=== PATIENT | male | born 1995 | race Hispanic/Latino ===

== ENCOUNTER 2024-04-26 23:07 | Emergency (ER) | payer SELFPAY ==
[2024-04-26] MEDS ORDERED: HYDROCODONE/CHLORPHEN 5 ML/OSYR ONE (23:49)
[2024-04-26] MEDS ORDERED: IBUPROFEN 400 MG TAB ONE (23:50)
[2024-04-26] MEDS ORDERED: dexAMETHasone 4 MG TAB ONE (23:50)
[2024-04-26] MEDS ORDERED: AMOX/K CLAV 875 MG TAB ONE (23:50)
--- NOTE | 2024-04-26 23:51 | ER ---
Nurse's Notes [facility] Name: Delbert Santillan Age: 28 yrs Sex: Male : 1995 Arrival Date: 04/26/2024 Time: 23:07 Bed IW1 Private MD: Diagnosis: Cough;Acute suppurative otitis media with spontaneous rupture of ear drum, right ear Presentation: 04/26 23:30 Chief complaint: Patient states: right ear pain, cough X3 hours. Coronavirus screen: lg3 Client denies travel out of the [place] in the last 14 days. At this time, the client does not indicate any symptoms associated with coronavirus-19. Ebola Screen: No symptoms or risks identified at this time. Initial Sepsis Screen: Does the patient meet any 2 criteria? No. Patient's initial sepsis screen is negative. Does the patient have a suspected source of infection? No. Patient's initial sepsis screen is negative. Risk Assessment: Do you want to hurt yourself or someone else? Patient reports no desire to harm self or others. Onset of symptoms was April 26, 2024. 23:30 Method Of Arrival: Ambulatory lg3 23:30 Acuity: CAROLINE 4 lg3 Triage Assessment: 23:32 General: Appears in no apparent distress. uncomfortable, Behavior is calm, cooperative. lg3 Pain: Complains of pain in right ear. EENT: Reports nasal congestion nasal discharge pain in right ear. Neuro: No deficits noted. Carrera Agitation-Sedation Scale (RASS): 0 - Alert and Calm Level of Consciousness is awake, alert, obeys commands, Oriented to person, place, time, situation. Cardiovascular: No deficits noted. Denies chest pain, shortness of breath, Capillary refill < 3 seconds Clubbing of nail beds is absent JVD is absent Patient's skin is warm and dry. Respiratory: No deficits noted. Airway is patent Respiratory effort is even, unlabored, Respiratory pattern is regular, symmetrical. GI: No deficits noted. No signs and/or symptoms were reported involving the gastrointestinal system. : No signs and/or symptoms were reported regarding the genitourinary system. Derm: No deficits noted. No signs and/or symptoms reported regarding the dermatologic system. Skin is intact, is healthy with good turgor, Skin is dry, Skin is normal, Skin temperature is warm. Musculoskeletal: No deficits noted. No signs and/or symptoms reported regarding the musculoskeletal system. Circulation, motion, and sensation intact. Range of motion: intact in all extremities. Historical: - Allergies: 23:32 No Known Allergies; lg3 - Home Meds: 23:32 None [Active]; lg3 - PMHx: 23:32 None; lg3 - PSHx: 23:32 None; lg3 - Immunization history:: Adult Immunizations up to date. - Infectious Disease History:: Denies. - Social history:: Smoking status: Patient denies any tobacco usage or history of. Patient uses alcohol, only on a social basis. street drugs, THC. Screenin:38 [facility] ED Fall Risk Assessment (Adult) History of falling in the last 3 months, lg3 including since admission No falls in past 3 months (0 pts) Confusion or Disorientation No (0 pts) Intoxicated or Sedated No (0 pts) Impaired Gait No (0 pts) Mobility Assist Device Used No (0 pt) Altered Elimination No (0 pt) Score/Fall Risk Level 0 - 2 = Low Risk Oriented to surroundings, Maintained a safe environment, Educated pt \T\ family on fall prevention, incl call for assistance when getting out of bed, Assessed \T\ reinforced patient's understanding of fall precautions. Abuse screen: Denies threats or abuse. Denies injuries from another. Nutritional screening: No deficits noted. Tuberculosis screening: No symptoms or risk factors identified. Assessment: 23:38 General: see triage assessment. lg3 Vital Signs: 23:30 BP 129 / 74; Pulse 84; Resp 16 S; Temp 98.7(O); Pulse Ox 99% on R/A; Weight 64.86 kg lg3 (R); Height 5 ft. 3 in. (R); 23:30 Body Mass Index 25.33 (64.86 kg, 160.02 cm) lg3 ED Course: 23:11 Patient arrived in ED. [email or web address] 23:11 Александр Griffiths PA is PHCP. cp 23:11 Easton Zambrano MD is Attending Physician. cp 23:32 Triage completed. lg3 23:32 Arm band placed on right wrist. lg3 23:38 Patient has correct armband on for positive identification. lg3 23:48 Sarah Coates MD is Referral Physician. cp 23:57 No provider procedures requiring assistance completed. Patient did not have IV access lg3 during this emergency room visit. Administered Medications: 23:53 Drug: Amoxicillin-Clavulanate PO 875 mg PO once Route: PO; lg3 23:53 Follow up: Response: No adverse reaction lg3 23:53 Drug: Tussionex Pennkinetic ER PO Suspension 5 ml PO once Route: PO; lg3 23:53 Follow up: Response: No adverse reaction lg3 23:53 Drug: Dexamethasone PO 10 mg PO once Route: PO; lg3 23:53 Follow up: Response: No adverse reaction lg3 23:53 Drug: Ibuprofen PO 800 mg PO once Route: PO; lg3 23:54 Follow up: Response: No adverse reaction lg3 Medication: 23:38 VIS not applicable for this client. lg3 Outcome: 23:50 Discharge ordered by MD. cp 23:57 Discharged to home ambulatory, lg3 23:57 Condition: stable 23:57 Discharge instructions given to patient, Instructed on discharge instructions, follow up and referral plans. medication usage, Demonstrated understanding of instructions, follow-up care, medications, Prescriptions given X 4, 12/02 00:10 Patient left the ED. lg3 Signatures: Александр Griffiths PA PA Mishel Lomax RN RN lg3 Farzana Reyes [email or web address]
--- NOTE | 2024-04-26 23:51 | EDPHYS ---
Physician Documentation [facility] Name: Delbert Santillan Age: 28 yrs Sex: Male : 1995 Arrival Date: 04/26/2024 Time: 23:07 Bed IW1 Private MD: ED Physician Easton Zambrano HPI: 04/26 23:36 This 28 yrs old Male presents to ER via Ambulatory with complaints of Right Ear Pain, cp Cough and Sore Throat. 23:36 The patient presents with a fullness, pain, that is acute, tenderness. The complaints cp affect the right ear. Onset: The symptoms/episode began/occurred today, about 2029. Associated signs and symptoms: Pertinent positives: tinnitus, sore throat, cough, Pertinent negatives: fever. Severity of symptoms: in the emergency department the symptoms are unchanged despite home interventions. Historical: - Allergies: 23:32 No Known Allergies; lg3 - Home Meds: 23:32 None [Active]; lg3 - PMHx: 23:32 None; lg3 - PSHx: 23:32 None; lg3 - Immunization history:: Adult Immunizations up to date. - Infectious Disease History:: Denies. - Social history:: Smoking status: Patient denies any tobacco usage or history of. Patient uses alcohol, only on a social basis. street drugs, THC. ROS: 23:37 Eyes: Negative for injury, pain, redness, and discharge, cp 23:37 Constitutional: Negative for body aches, chills, fever, poor PO intake, 23:37 ENT: Positive for ear pain, sore throat, tinnitus, right ear fullness, Negative for drainage from ear(s), difficulty swallowing, difficulty handling secretions, 23:37 Respiratory: Positive for cough, "sounds productive", Negative for shortness of breath, wheezing, 23:37 Abdomen/GI: Negative for abdominal pain, vomiting, diarrhea, constipation, 23:37 Neuro: Negative for altered mental status, dizziness, numbness, weakness, 23:37 All other systems are negative, Exam: 23:40 Constitutional: The patient appears in no acute distress, alert, awake, non-toxic, well cp developed, well nourished, 23:40 Head/Face: Normocephalic, atraumatic. cp 23:40 Eyes: Periorbital structures: appear normal, Conjunctiva: normal, no exudate, no injection, Lids and lashes: appear normal, bilaterally, 23:40 ENT: External ear(s): are unremarkable, Ear canal(s): are normal, clear, TM's: erythema, that is moderate, on the right, loss of bony landmarks, that is moderate, on the right, rupture, on the right, Nose: is normal, Mouth: Lips: moist, Oral mucosa: pink and intact, moist, Posterior pharynx: Airway: no evidence of obstruction, patent, Tonsils: are normal in appearance, erythema, is not appreciated, exudate, is not appreciated, 23:40 Chest/axilla: Inspection: normal, 23:40 Cardiovascular: Rate: normal, 23:40 Respiratory: the patient does not display signs of respiratory distress, Respirations: normal, no use of accessory muscles, no retractions, labored breathing, is not present, Breath sounds: are clear throughout, no decreased breath sounds, no stridor, no wheezing, 23:40 Abdomen/GI: Inspection: abdomen appears normal, Vital Signs: 23:30 BP 129 / 74; Pulse 84; Resp 16 S; Temp 98.7(O); Pulse Ox 99% on R/A; Weight 64.86 kg lg3 (R); Height 5 ft. 3 in. (R); 23:30 Body Mass Index 25.33 (64.86 kg, 160.02 cm) lg3 MDM: 23:42 Medical Screening Exam initiated cp 23:45 Differential diagnosis: otitis media, otitis externa, ruptured TM, strep throat, cp tonsillitis. 23:50 Data reviewed: vital signs, nurses notes, and as a result, I will discharge patient. 23:50 I considered the following discharge prescriptions or medication management in the emergency department Medications were administered in the Emergency Department. See MAR. Counseling: I had a detailed discussion with the patient and/or guardian regarding the historical points, exam findings, and any diagnostic results supporting the discharge/admit diagnosis, the need for outpatient follow up, an ENT specialist, to return to the emergency department if symptoms worsen or persist or if there are any questions or concerns that arise at home. Response to treatment: the patient's symptoms have mildly improved after treatment, and as a result, I will discharge patient. Administered Medications: 23:53 Drug: Amoxicillin-Clavulanate PO 875 mg PO once Route: PO; lg3 23:53 Follow up: Response: No adverse reaction lg3 23:53 Drug: Tussionex Pennkinetic ER PO Suspension 5 ml PO once Route: PO; lg3 23:53 Follow up: Response: No adverse reaction lg3 23:53 Drug: Dexamethasone PO 10 mg PO once Route: PO; lg3 23:53 Follow up: Response: No adverse reaction lg3 23:53 Drug: Ibuprofen PO 800 mg PO once Route: PO; lg3 23:54 Follow up: Response: No adverse reaction lg3 Disposition Summary: 04/26/24 23:50 Discharge Ordered Notes: Location: Home cp Problem: new cp Symptoms: have improved cp Condition: Stable cp Diagnosis - Cough cp - Acute suppurative otitis media with spontaneous rupture of ear drum, right ear cp Followup: cp - With: Sarah Coates MD - When: 1 week - Reason: symptoms continue Discharge Instructions: - Discharge Summary Sheet cp - Otitis Media, Adult cp - Cough, Adult cp Forms: - Medication Reconciliation Form cp - Antibiotic Education cp - Prescription Opioid Use cp - Patient Portal Instructions cp - Leadership Thank You Letter cp - Work release form vk Prescriptions: - Bromfed DM 2-30-10 mg/5 mL Oral syrup - administer 10 milliliter ORAL route every 6-8 hours as needed for cold cp symptoms; 240 milliliter; Refills: 0, Product Selection Permitted - Augmentin 875-125 mg Oral Tablet - take 1 tablet ORAL route every 12 hours for 10 days; 20 tablet; Refills: 0, cp Product Selection Permitted - Ibuprofen 800 mg Oral Tablet - take 1 tablet ORAL route every 8 hours As needed take with food; 30 tablet; cp Refills: 0, Product Selection Permitted - Medrol (Edison) 4 mg Oral Tablets, Dose Pack - take 1 tablet ORAL route as directed - follow package instructions; 1 packet; cp Refills: 0, Product Selection Permitted Signatures: Александр Griffiths PA PA cp Able, Lacie, RN RN lg3
[2024-04-27 03:45] VITALS: BP 129/74; TEMP 98.7; O2SAT 99
== END 2024-04-27 00:10 | disposition home or self-care (01) ==
LOC: ER 23:07
DX: H66.011 Acute suppurative otitis media with spontaneous rupture of ear drum, right ear (principal); R05.9 Cough, unspecified
CPT/HCPCS: 99283; J8540